=== PATIENT | male | born 1960 | race Two or more races ===

== ENCOUNTER → 2025-05-30 | Outpatient (CLI) | payer MEDICARE, MEDICAID, SELFPAY ==
--- NOTE | 2025-05-30 11:02 | XR_ITS ---
Examination: Tibia-Fibula, left , 2 views Technique: Tibia-fibula AP lateral 2 views Date and time of exam: May 30, 2025 1132 hours INDICATIONS: History fracture tibia one month ago FINDINGS: Adequate bone density. Fracture distal fibular shaft without displacement on the lateral view IMPRESSION: Subacute fracture distal fibular shaft
== END | disposition home or self-care (01) ==
PROVIDERS: PCP Internal Medicine Hospice and Palliative Medicine
DX: S82.442A Displaced spiral fracture of shaft of left fibula, initial encounter for closed fracture (principal); X58.XXXA Exposure to other specified factors, initial encounter
CPT/HCPCS: 73590

== ENCOUNTER → 2025-07-07 | Outpatient (CLI) | payer MEDICARE, MEDICAID, SELFPAY ==
--- NOTE | 2025-07-07 10:21 | XR_ITS ---
Examination: Tibia-Fibula, left, 2 views Technique: Tibia-fibula AP lateral 2 views Date and time of exam: July 07, 2025, 1053 hours INDICATIONS: Fractured distal fibula 2 months ago FINDINGS: Comparison 05/30/2025 Healing fracture distal fibula with stable alignment IMPRESSION: Significant healing fracture distal fibula with stable and satisfactory alignment
== END | disposition home or self-care (01) ==
LOC: SDIM 10:08
PROVIDERS: Referring Provider Orthopaedic Surgery; Visit Provider Orthopaedic Surgery
DX: S82.832D Other fracture of upper and lower end of left fibula, subsequent encounter for closed fracture with routine healing (principal); X58.XXXD Exposure to other specified factors, subsequent encounter
CPT/HCPCS: 73590

== ENCOUNTER → 2025-08-11 | Outpatient (CLI) | payer MEDICARE, MEDICAID, SELFPAY ==
--- NOTE | 2025-08-11 | XR_ITS ---
Examination: Tibia-Fibula, left, 2 views Technique: Tibia-fibula AP lateral 2 views Date and time of exam: August 11, 2025, 1212 hours INDICATIONS: History fracture lower leg May 03, 2025. FINDINGS: Significant Fracture distal fibula near the fibular tip Satisfactory alignment IMPRESSION: Significant healing fracture distal fibular shaft
== END | disposition home or self-care (01) ==
LOC: SDIM 11:14
PROVIDERS: Referring Provider Orthopaedic Surgery; Visit Provider Orthopaedic Surgery
DX: S82.442A Displaced spiral fracture of shaft of left fibula, initial encounter for closed fracture (principal); X58.XXXA Exposure to other specified factors, initial encounter
CPT/HCPCS: 73590